=== PATIENT | female | born 1965 | race Caucasian/White ===

== ENCOUNTER → 2017-01-14 | Outpatient (CLI) | payer BC ==
[~2017-01-14] MED LIST: DCS100C PO; ESTR1TAB24 PO; FEXO180T PO; HYDR1TAB75 PO; IBP800T PO; LISI10TA PO; OMEP-10 PO; ONDA4TAB8 PO; PROBIOTIC1 EACH PO
--- OUTSIDE RECORDS SUMMARY | 2017-01-14 11:28 | XMS REPORT | Continuity of Care Document ---
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 04/26/2011 Ot 620.1 CORPUS LUTEUM CYST 04/26/2011 Ot 625.6 FEM STRESS INCONTINENCE 04/26/2011 Ot 626.2 EXCESSIVE MENSTRUATION 04/26/2011 Ot 626.8 MENSTRUAL DISORDER NEC 06/14/2015 MAX ALLEN APRN Ot 786.05 06/14/2015 MAX ALLEN APRN Ot 786.2 06/14/2015 MAX ALLEN APRN Ot V12.61 07/08/2015 MAX ALLEN APRN Ot 786.05 07/08/2015 MAX ALLEN APRN Ot 786.2 07/08/2015 MAX ALLEN APRN Ot V12.61 10/22/2015 Ot 401.9 10/22/2015 Ot V76.12 10/22/2015 Ot 625.6 10/22/2015 Ot 626.8 10/22/2015 Ot V72.63 10/22/2015 Ot V72.81 10/22/2015 Ot V74.8 10/26/2015 Ot 625.6 10/26/2015 Ot 626.8 10/26/2015 Ot V72.63 10/26/2015 Ot V72.81 10/26/2015 Ot V74.8 02/22/2016 Ot 625.6 02/22/2016 Ot 626.8 02/22/2016 Ot V72.63 02/22/2016 Ot V72.81 02/22/2016 Ot V74.8 03/16/2016 COLE DO, RAFI L Ot K42.9 UMBILICAL HERNIA WITHOUT OBSTRUCTION OR 03/16/2016 COLE DO, RAFI L Ot K80.20 CALCULUS OF GALLBLADDER W/O CHOLECYSTITI 03/16/2016 COLE DO, RAFI L Ot N39.0 URINARY TRACT INFECTION, SITE NOT SPECIF 03/16/2016 Ot 625.6 FEM STRESS INCONTINENCE 03/16/2016 Ot 626.8 MENSTRUAL DISORDER NEC 03/16/2016 Ot V72.63 PRE-PROCEDURAL LABORATORY EXAMINATION 03/16/2016 Ot V72.81 [id number] CARDIOVASCULAR 03/16/2016 Ot V74.8 SCREEN-BACTERIAL DIS NEC 03/17/2016 COLE DO, RAFI L Ot K42.9 UMBILICAL HERNIA WITHOUT OBSTRUCTION OR 03/17/2016 COLE DO, RAFI L Ot K80.20 CALCULUS OF GALLBLADDER W/O CHOLECYSTITI 03/17/2016 COLE DO, RAFI L Ot N39.0 URINARY TRACT INFECTION, SITE NOT SPECIF 04/11/2016 COLE DO, RAFI L Ot K42.9 UMBILICAL HERNIA WITHOUT OBSTRUCTION OR 04/11/2016 COLE DO, RAFI L Ot K80.20 CALCULUS OF GALLBLADDER W/O CHOLECYSTITI 04/11/2016 COLE DO, RAFI L Ot N39.0 URINARY TRACT INFECTION, SITE NOT SPECIF 04/12/2016 COLE DO, RAFI L Ot K42.9 UMBILICAL HERNIA WITHOUT OBSTRUCTION OR 04/12/2016 COLE DO, RAFI L Ot K80.20 CALCULUS OF GALLBLADDER W/O CHOLECYSTITI 04/12/2016 COLE DO, RAFI L Ot N39.0 URINARY TRACT INFECTION, SITE NOT SPECIF 04/13/2016 Ot 625.6 FEM STRESS INCONTINENCE 04/13/2016 Ot 626.8 MENSTRUAL DISORDER NEC 04/13/2016 Ot V72.63 PRE-PROCEDURAL LABORATORY EXAMINATION 04/13/2016 Ot V72.81 [id number]-[id number] CARDIOVASCULAR 04/13/2016 Ot V74.8 SCREEN-BACTERIAL DIS NEC 04/14/2016 CHRISSY FONG CAMERA SUPERVISOR Ot R06.02 SHORTNESS OF BREATH 04/28/2016 CHRISSY FONG CAMERA SUPERVISOR Ot R06.02 SHORTNESS OF BREATH 05/26/2016 Ot 625.6 FEM STRESS INCONTINENCE 05/26/2016 Ot 626.8 MENSTRUAL DISORDER NEC 05/26/2016 Ot V72.63 PRE-PROCEDURAL LABORATORY EXAMINATION 05/26/2016 Ot V72.81 [id number] CARDIOVASCULAR 05/26/2016 Ot V74.8 SCREEN-BACTERIAL DIS NEC 05/26/2016 CHRISSY FONG APRN Ot R06.02 SHORTNESS OF BREATH 06/02/2016 Ot 625.6 FEM STRESS INCONTINENCE 06/02/2016 Ot 626.8 MENSTRUAL DISORDER NEC 06/02/2016 Ot V72.63 PRE-PROCEDURAL LABORATORY EXAMINATION 06/02/2016 Ot V72.81 [id number] CARDIOVASCULAR 06/02/2016 Ot V74.8 SCREEN-BACTERIAL DIS NEC 06/02/2016 CHRISSY FONG APRN Ot R06.02 SHORTNESS OF BREATH Procedures Code Description Performed By Performed On 59.79 04/24/2011 65.61 04/24/2011 68.51 04/24/2011 70.50 04/24/2011 Results Encounters ACCT No. Visit Date/Time Discharge Status Pt. Type Provider Facility Loc./Unit Complaint [id number] 03/16/2016 14:23:00 2015 16:41:00 DIS Emergency COLE DO, RAFI L [facility] ER [id number] 06/09/2015 19:39:00 2014 23:59:59 CLS Outpatient MAX ALLEN APRN [facility] RAD [id number] 11/03/2014 14:54:00 2013 23:59:59 CLS Outpatient SENDY MERRILL [facility] OCC [id number] 04/13/2016 15:18:00 ACT Outpatient CHRISSY FONG APRN [facility] RAD [id number] 04/24/2011 05:46:00 Document Registration [id number] 04/19/2011 08:57:00 Document Registration [id number] 10/21/2010 11:55:00 Document Registration [id number] 05/02/2010 06:59:00 Document Registration
--- NOTE | 2017-01-14 12:24 | Diagnostic Imaging Report ---
INDICATION: Cough and congestion. COMPARISON: 04/13/2016 FINDINGS: Two views of the chest are obtained. Heart size is normal. The pulmonary vessels appear unremarkable. There is no pneumothorax, mediastinal widening or pleural fluid demonstrated. The lungs are clear. The osseous structures appear unremarkable. IMPRESSION: Negative chest. Dictated by: Dictated on workstation # [id number]
== END ==
LOC: RAD 11:25
PROVIDERS: ATTEND Nurse Practitioner Family
DX: J20.9 Acute bronchitis, unspecified (principal)
CPT/HCPCS: 71020

== ENCOUNTER → 2017-06-26 | Outpatient (CLI) | payer BC ==
--- NOTE | 2017-06-26 12:08 | Diagnostic Imaging Report ---
PROCEDURE: MRI lumbar spine. TECHNIQUE: Multiplanar, multisequence MRI of the lumbar spine was performed without contrast. INDICATION: Back pain. FINDINGS: There is minimal retrolisthesis of L4 over L5. Otherwise, the alignment of the lumbar spine is satisfactory. There is mild disc height loss at L4/5 and disc desiccation in the lower lumbar discs. There is preserved vertebral body heights. There is Modic type I and 2 changes around the endplates of L4/5. The cauda equina and conus medullaris appear grossly unremarkable. T12/L1: There is no disc herniation. There is mild facet hypertrophy. No spinal canal or foramina stenosis. L1/2: There is no disc herniation. There is no facet hypertrophy. No spinal canal or foraminal stenosis. L2/3: There is no disc herniation and there is no facet hypertrophy. No spinal canal or foraminal stenosis. L3/4: There is no disc herniation. No facet hypertrophy. No central canal, lateral recess or foraminal stenosis. L4/5: There is a diffuse disc bulge and bilateral moderate facet and ligamentous hypertrophy. There is moderate central canal stenosis reducing the AP dimension of the canal to 6 mm and moderate lateral recess stenosis is seen bilaterally, worse on the left with minimal compression of the descending left L5 nerve roots. The foramina demonstrate mild stenosis on the left and no stenosis on the right. L5/S1: There is no significant disc herniation. There is moderate to severe facet hypertrophy seen at L5/S1. There is bilateral lateral recess stenosis of mild to moderate degree more prominent on the left side with no definite nerve compression. The foramina are patent bilaterally. IMPRESSION: There is minimal retrolisthesis of L4 over L5 with disc and facet degenerative changes resulting in central canal and lateral recess stenosis more prominent on the left side and slightly compressing the descending left L5 nerve roots. Dictated by: Dictated on workstation # [id number]
== END ==
LOC: RAD 10:02
PROVIDERS: ATTEND Nurse Practitioner
DX: M48.06 Spinal stenosis, lumbar region (principal); M54.16 Radiculopathy, lumbar region
CPT/HCPCS: 72148

== ENCOUNTER 2017-08-26 15:59 | Emergency (ER) | payer BC ==
[~2017-08-26] VITALS: Ht 167.6 cm; Wt 79.4 kg
--- OUTSIDE RECORDS SUMMARY | 2017-08-26 16:05 | XMS REPORT | Continuity of Care Document ---
Author Author [facility] Organization [facility] Address Unknown Phone Unavailable Allergies Active Description Code Type Severity Reaction Onset Reported/Identified Relationship to Patient Clinical Status Yes No Known Drug Allergies [id number] Drug Allergy Unknown N/ A 04/01/2010 Medications [...] V72.63 PRE-PROCEDURAL LABORATORY EXAMINATION 03/16/2016 Ot V72.81 [id number] CARDIOVASCULAR 03/16/2016 Ot V74.8 SCREEN-BACTERIAL DIS NEC [...] INFECTION, SITE NOT SPECIF 04/12/2016 COLE DO, RFAI L Ot K42.9 UMBILICAL HERNIA WITHOUT OBSTRUCTION OR 04/12/2016 COLE DO, RAFI L Ot K80.20 CALCULUS OF GALLBLADDER W/O CHOLECYSTITI 04/12/2016 COLE DO, RAFI L Ot N39.0 URINARY TRACT INFECTION, SITE NOT SPECIF 04/13/2016 Ot 625.6 FEM STRESS INCONTINENCE 04/13/2016 Ot 626.8 MENSTRUAL DISORDER NEC 04/13/2016 Ot V72.63 PRE-PROCEDURAL LABORATORY EXAMINATION 04/13/2016 Ot V72.81 [id number]-MBL-[id number] CARDIOVASCULAR 04/13/2016 Ot V74.8 SCREEN-BACTERIAL DIS NEC 04/14/2016 CHRISSY FONG DRY END OPERATOR Ot R06.02 SHORTNESS OF BREATH 04/28/2016 CHRISSY FONG APRN Ot R06.02 SHORTNESS OF BREATH 05/26/2016 Ot 625.6 FEM STRESS INCONTINENCE 05/26/2016 Ot 626.8 MENSTRUAL DISORDER NEC 05/26/2016 Ot V72.63 PRE-PROCEDURAL LABORATORY EXAMINATION 05/26/2016 Ot V72.81 [id number] CARDIOVASCULAR 05/26/2016 Ot V74.8 SCREEN-BACTERIAL DIS NEC 05/26/2016 CHRISSY FONG DRY END OPERATOR Ot R06.02 SHORTNESS OF BREATH 06/02/2016 Ot 625.6 FEM STRESS INCONTINENCE 06/02/2016 Ot 626.8 MENSTRUAL DISORDER NEC 06/02/2016 Ot V72.63 PRE-PROCEDURAL LABORATORY EXAMINATION 06/02/2016 Ot V72.81 [id number]-[id number] CARDIOVASCULAR 06/02/2016 Ot V74.8 SCREEN-BACTERIAL DIS NEC 06/02/2016 CHRISSY FONG DRY END OPERATOR Ot R06.02 SHORTNESS OF BREATH 01/14/2017 CHRISSY FONG DRY END OPERATOR Ot R06.02 SHORTNESS OF BREATH 02/01/2017 JAMES TERRY Ot J20.9 ACUTE BRONCHITIS, UNSPECIFIED 06/27/2017 ANICETO FREEDMAN Ot M48.06 SPINAL STENOSIS, LUMBAR REGION 06/27/2017 ANICETO FREEDMAN Ot M54.16 RADICULOPATHY, LUMBAR REGION 08/01/2017 ANICETO FREEDMAN Ot M48.06 SPINAL STENOSIS, LUMBAR REGION 08/01/2017 ANICETO FREEDMAN Ot M54.16 RADICULOPATHY, LUMBAR REGION Procedures Code Description Performed By Performed On 59.79 04/24/2011 65.61 04/24/2011 68.51 04/24/2011 70.50 04/24/2011 Results Encounters ACCT No. Visit Date/Time Discharge Status Pt. Type Provider Facility Loc./Unit Complaint [id number] 06/26/2017 10:02:00 2016 23:59:59 CLS Outpatient ANICETO FREEDMAN [facility] RAD LUMBAR RADICULOPATHY [id number] 01/14/2017 11:25:00 2016 23:59:59 CLS Outpatient JAMES TERRY [facility] RAD ACUTE BRONCHITIS UNSPECIFIED ORGANISM [id number] 04/13/2016 15:18:00 2015 23:59:59 CLS Outpatient CHRISSY FONG APRN [facility] RAD SOB [id number] 03/16/2016 14:23:00 2015 16:41:00 DIS Emergency COLE RAFI ROBERT [facility] ER LEFT FLANK PAIN/UTI SYMPTOMS [id number] 06/09/2015 19:39:00 2014 23:59:59 CLS Outpatient MAX ALLEN APRN [facility] RAD [id number] 11/03/2014 14:54:00 2013 23:59:59 CLS Outpatient SENDY MERRILL [facility] OCC [id number] 04/24/2011 05:46:00 Document Registration [id number] 04/19/2011 08:57:00 Document Registration [id number] 10/21/2010 11:55:00 Document Registration [id number] 05/02/2010 06:59:00 Document Registration
[2017-08-26 16:50] LABS: BILIRUBIN,URINE NEGATIVE (NEGATIVE); KETONES,URINE NEGATIVE (NEGATIVE); LEUKOCYTE ESTERASE ,URINE NEGATIVE (NEGATIVE); NITRITE,URINE NEGATIVE (NEGATIVE); PH,URINE 7 (5-9); PROTEIN,URINE NEGATIVE (NEGATIVE); UROBILINOGEN,URINE NORMAL (NORMAL)
[2017-08-26 17:14] LABS: SQUAMOUS EPITHELIAL CELL,UR TNTC /HPF
[2017-08-26] MEDS ORDERED: NS IV 1000 ML 1,000 ML IV ONE (17:46)
[2017-08-26] MEDS ORDERED: fentaNYL INJECTION 100 MCG/2 ML AMP IVP STA (17:46)
[2017-08-26] MEDS ORDERED: NS 100 ML (IVPB) BAG IV ONE (18:00)
[2017-08-26] MEDS ORDERED: IOHEXOL 350 MG/ML 100 ML (OMNIPAQUE 350) VIAL IV ONE (18:00)
[2017-08-26] MEDS ORDERED: ONDANSETRON 4 MG/2 ML (SDV) Z0FRAN IVP ONE (18:00)
[2017-08-26] MEDS ORDERED: KETOROLAC 30 MG/ML VIAL IVP STA (18:09)
[2017-08-26 18:11] LABS: BASOPHILS % (AUTO) 0 % (0-10); EOSINOPHILS # (AUTO) 0.1 10^3/uL (0.0-0.3); EOSINOPHILS % (AUTO) 2 % (0-10); LYMPHOCYTES # (AUTO) 1.7 X 10^3 (1.0-4.0); LYMPHOCYTES % (AUTO) 38 % (12-44); MEAN CORPUSCULAR HEMOGLOBIN 30 PG (25-34); MEAN CORPUSCULAR HGB CONC 33 G/DL (32-36); MEAN CORPUSCULAR VOLUME 91 FL (80-99); MEAN PLATELET VOLUME 10.3 FL (7.4-10.4); MONOCYTES # (AUTO) 0.4 X 10^3 (0.0-1.0); MONOCYTES % (AUTO) 10 % (0-12); NEUTROPHILS # (AUTO) 2.1 X 10^3 (1.8-7.8); NEUTROPHILS % (AUTO) 49 % (42-75); PLATELET COUNT 252 10^3/uL (130-400); RED BLOOD COUNT 4.24 10^6/uL (4.35-5.85); RED CELL DISTRIBUTION WIDTH 13.1 % (10.0-14.5); WHITE BLOOD COUNT 4.3 10^3/uL (4.3-11.0)
[2017-08-26] MEDS ORDERED: LORazepam INJ 2 MG/ML (ATIVAN) VIAL IVP ONE (18:15)
--- NOTE | 2017-08-26 18:37 | ED Abdominal Pain ---
General Chief Complaint: Abdominal/GI Problems Stated Complaint: STOMACH AND R SIDE PAIN Nursing Triage Note: AMB TO ROOM REPORTS HAS HAD STOMACH ISSUES FOR 2 WEEKS WITH DIARRHEA BECAME BETTER, TUE WAS WEAK WITH BODY ACHES, DIARRHEA ,NAUSEA NO VOMITING. Sepsis Screen: No Definite Risk Source of Information: Patient, Spouse Exam Limitations: No Limitations Allergies and Home Medications Allergies Coded Allergies: No Known Drug Allergies (Unverified , 04/01/10) Home Medications Docusate Sodium 100 Mg Capsule, 100 MG PO BID, (Reported) Estradiol 1 Mg Tablet, 1 MG PO DAILY, (Reported) Fexofenadine Hcl 180 Mg Tablet, 1 TAB PO DAILY, (Reported) Hydrocodone Bit/Acetaminophen 1 Each Tablet, 1-2 EACH PO q 3hrs prn PRN, ( Reported) Ibuprofen 800 Mg Tab, 800 MG PO q 6hrs prn PRN, (Reported) Lactobacillus Rhamnosus Gg 1 Each Capsule, 1 EACH PO DAILY, (Reported) Lisinopril 10 Mg Tablet, 1 EACH PO DAILY, (Reported) Omeprazole 20 Mg Capsule.dr, 20 MG PO DAILY, (Reported) Past Kwypvcb-Asxxkh-Quzise Hx Patient Social History Alcohol Use: Occasionally Uses Recreational Drug Use: No Smoking Status: Never a Smoker Recent Foreign Travel: No Contact w/Someone Who Travel: No Recent Infectious Disease Expo: No Recent Hopitalizations: Yes (SURGERY) Surgeries History of Surgeries: Yes (NEUROMA RT. FOOT) Respiratory History of Respiratory Disorde: No Cardiovascular History of Cardiac Disorders: No Neurological History of Neurological Disord: No Reproductive System Hx Reproductive Disorders: Yes Sexually Transmitted Disease: No Gastrointestinal History of Gastrointestinal Di: Yes (ADMITTED DEC. FOR INTESTINAL INFECTION) Musculoskeletal History of Musculoskeletal Dis: No Endocrine History of Endocrine Disorders: No Psychosocial History of Psychiatric Problem: No Blood Transfusions History of Blood Disorders: No Physical Exam Vital Signs VS - Last 72 Hours, by Label 08/26/17 16:13 Temp 97.1 Pulse 83 Resp 18 B/P (MAP) 143/93 Pulse Ox 98 O2 Delivery Room Air Capillary Refill : Less Than 3 Seconds Progress/Results/Core Measures Results/Orders Lab Results Laboratory Tests Test 08/26/17 16:40 08/26/17 17:55 Range/Units Urine Color YELLOW Urine Clarity SLIGHTLY CLOUDY Urine pH 7 5-9 Urine Specific [place] 1.005 L 1.016-1.022 Urine Protein NEGATIVE NEGATIVE Urine Glucose (UA) NEGATIVE NEGATIVE Urine Ketones NEGATIVE NEGATIVE Urine Nitrite NEGATIVE NEGATIVE Urine Bilirubin NEGATIVE NEGATIVE Urine Urobilinogen NORMAL NORMAL MG/DL Urine Leukocyte Esterase NEGATIVE NEGATIVE Urine RBC (Auto) NEGATIVE NEGATIVE Urine RBC NONE /HPF Urine WBC 2-5 /HPF Urine Squamous Epithelial Cells TNTC H /HPF Urine Crystals NONE /LPF Urine Bacteria LARGE H /HPF Urine Casts NONE /LPF Urine Mucus NEGATIVE /LPF Urine Culture Indicated NO White Blood Count 4.3 4.3-11.0 10^3/uL Red Blood Count 4.24 L 4.35-5.85 10^6/uL Hemoglobin 12.8 11.5-16.0 G/DL Hematocrit 39 35-52 % Mean Corpuscular Volume 91 80-99 FL Mean Corpuscular Hemoglobin 30 25-34 PG Mean Corpuscular Hemoglobin Concent 33 32-36 G/DL Red Cell Distribution Width 13.1 10.0-14.5 % Platelet Count 252 130-400 10^3/uL Mean Platelet Volume 10.3 7.4-10.4 FL Neutrophils (%) (Auto) 49 42-75 % Lymphocytes (%) (Auto) 38 12-44 % Monocytes (%) (Auto) 10 0-12 % Eosinophils (%) (Auto) 2 0-10 % Basophils (%) (Auto) 0 0-10 % Neutrophils # (Auto) 2.1 1.8-7.8 X 10^3 Lymphocytes # (Auto) 1.7 1.0-4.0 X 10^3 Monocytes # (Auto) 0.4 0.0-1.0 X 10^3 Eosinophils # (Auto) 0.1 0.0-0.3 10^3/uL Basophils # (Auto) 0.0 0.0-0.1 10^3/uL Sodium Level 143 135-145 MMOL/L Potassium Level 3.1 L 3.6-5.0 MMOL/L Chloride Level 105 98-107 MMOL/L Carbon Dioxide Level 27 21-32 MMOL/L Anion Gap 11 5-14 MMOL/L Blood Urea Nitrogen 7 7-18 MG/DL Creatinine 0.66 0.60-1.30 MG/DL Estimat Glomerular Filtration Rate > 60 BUN/Creatinine Ratio 11 Glucose Level 92 70-105 MG/DL Calcium Level 8.9 8.5-10.1 MG/DL Total Bilirubin 0.3 0.1-1.0 MG/DL Aspartate Amino Transf (AST/SGOT) 25 5-34 U/L Alanine Aminotransferase (ALT/SGPT) 49 0-55 U/L Alkaline Phosphatase 62 40-136 U/L C-Reactive Protein High Sensitivity 0.82 H 0.00-0.50 MG/DL Total Protein 6.0 L 6.4-8.2 GM/DL Albumin 3.8 3.2-4.5 GM/DL Lipase 25 8-78 U/L My Orders Orders - TRIP GRAY Ua Culture If Indicated (08/26/17 16:33) Cbc With Automated Diff (08/26/17 17:46) Comprehensive Metabolic Panel (08/26/17 17:46) Hs C Reactive Protein (08/26/17 17:46) Lipase (08/26/17 17:46) Saline Lock/Iv-Start (08/26/17 17:46) Fentanyl Injection (Sublimaze Injection (08/26/17 17:46) Ondansetron Injection (Zofran Injectio (08/26/17 18:00) Ns Iv 1000 Ml (Sodium Chloride 0.9%) (08/26/17 17:46) Iohexol Injection (Omnipaque 350 Mg/Ml 1 (08/26/17 18:00) Ns (Ivpb) (Sodium Chloride 0.9% Ivpb Bag (08/26/17 18:00) Pharmacy Communication (Pharmacy Communi (08/26/17 17:50) Ct Abd/Pelvis Wo(Kidney Stone) (08/26/17 18:09) Ketorolac Injection (Toradol Injection) (08/26/17 18:09) Lorazepam Injection (Ativan Injection) (08/26/17 18:15) Medications Given in ED Current Medications Medications Dose Ordered Sig/Jasmine Route Start Time Stop Time Status Last Admin Dose Admin Lorazepam 1 mg ONCE ONCE IVP 08/26/17 18:15 08/26/17 18:16 DC 08/26/17 18:16 1 MG Ondansetron HCl 4 mg ONCE ONCE IVP 08/26/17 18:00 08/26/17 18:01 DC 08/26/17 17:52 4 MG Sodium Chloride 1,000 ml @ 0 mls/hr Q0M ONCE IV 08/26/17 17:46 08/26/17 17:48 DC 10/8/17 17:53 1,000 MLS/HR Vital Signs/I&O Vital Sign - Last 12Hours 08/26/17 16:13 Temp 97.1 Pulse 83 Resp 18 B/P (MAP) 143/93 Pulse Ox 98 O2 Delivery Room Air Intake and Output 08/27/17 00:00 Intake Total 1000 ml Balance 1000 ml Blood Pressure Mean: 110 Departure Impression Impression: Primary Impression: Cholelithiasis Additional Impressions: Abdominal pain Nausea and vomiting Disposition: HOME, SELF-CARE Condition: Improved Departure-Patient Inst. Decision time for Depature: 20:56 Referrals: KAYLIN DAVIS MD (PCP/Family) Primary Care Physician Patient Instructions: Acute Abdomen (Belly Pain), Adult (DC), Gallstones (DC) Add. Discharge Instructions: All discharge instructions reviewed with patient and/or family. Voiced understanding. Medications as instructed. Ibuprofen 800 mg by mouth every 8 hours as needed for pain. Drink plenty of fluids. Strict low-fat diet. Follow-up with your family practitioner for recheck as an outpatient. Call for appointment time. Follow-up with Dr. Gorman as an outpatient for recheck, call Sunday for appointment time. Return to the emergency department immediately for worsened pain, fever, vomiting, inability to urinate, decreased urination, abdominal swelling, blood in the urine, blood in the stool, or any other concerns. Scripts Hydrocodone/Acetaminophen (Hydrocodon -Acetaminophen 5-325) 1 Each Tablet 1 EACH PO Q4H Y for PAIN, #20 TAB 0 Refills Prov: TRIP GRAY 08/26/17 Ondansetron (Ondansetron Odt) 8 Mg Tab.rapdis 8 MG PO Q6H Y for NAUSEA/VOMITING-1ST LINE, #10 TAB 0 Refills Prov: TRIP GRAY 08/26/17 Work/School Note: Local Medical Staff Listing, Work Release Form Date Seen in the Emergency Department: Aug 26, 2017 Return to Work: Aug 29, 2017 TRIP GRAY Aug 26, 2017 18:37
[2017-08-26 18:51] LABS: ALANINE AMINOTRANSFERASE 49 U/L (0-55); ALBUMIN 3.8 GM/DL (3.2-4.5); ANION GAP 11 MMOL/L (5-14); ASPARTATE AMINO TRANSFERASE 25 U/L (5-34); BILIRUBIN,TOTAL 0.3 MG/DL (0.1-1.0); BLOOD UREA NITROGEN 7 MG/DL (7-18); BUN/CREATININE RATIO 11; CALCIUM 8.9 MG/DL (8.5-10.1); CARBON DIOXIDE 27 MMOL/L (21-32); CHLORIDE 105 MMOL/L (98-107); CREATININE SERUM 0.66 MG/DL (0.60-1.30); GFR ESTIMATED > 60; GLUCOSE 92 MG/DL (70-105); LIPASE 25 U/L (8-78); POTASSIUM 3.1 MMOL/L (3.6-5.0); SODIUM 143 MMOL/L (135-145); hs C REACTIVE PROTEIN 0.82 MG/DL (0.00-0.50)
--- NOTE | 2017-08-26 18:59 | Diagnostic Imaging Report ---
PROCEDURE: CT urinary tract, rule out kidney stone. TECHNIQUE: Multiple contiguous axial images were obtained through the abdomen and pelvis without the use of intravenous contrast. INDICATION: Abdominal pain and diarrhea for five days, worse today, previous surgical history of bladder sling and hysterectomy. COMPARISON STUDY: CT scan of the abdomen and pelvis dated 03/16/2016. FINDINGS: The lung bases are clear. Cholelithiasis is again identified with a 2 cm stone near the neck of the gallbladder. No ductal dilatation or inflammation is seen. The liver, spleen, pancreas, adrenal glands, and kidneys appear normal. No renal calculi or hydronephrosis is present. Urinary bladder is normal. Uterus is absent. No ascites, free air, or abnormal adenopathy is present. Couple of diverticula are present without inflammation. The bowel loops are otherwise normal. No obstruction or ileus is present. The vascular structures appear normal. There is no abnormal adenopathy. There is no ascites or free air. Some facet arthropathy is seen in the lower lumbar spine. IMPRESSION: 1. Cholelithiasis is again identified. 2. There are no acute findings. Dictated by: Dictated on workstation # [id number]
[2017-08-26] MEDS ORDERED: RX-ONDANSETRON 4 MG ODT (ZOFRAN) PPK #4 PO STA (20:55)
[2017-08-26] MEDS ORDERED: ONDA8TAB13 PO (20:58)
[2017-08-26] MEDS ORDERED: HYDR-3812 PO (20:58)
[2017-08-26] MEDS ORDERED: RX-HYDROCODONE/APAP 5/325 MG #4 TAB PK PO PRN (21:00)
[2017-08-26 21:04] VITALS: BP 126/94
[2017-08-28] MEDS ORDERED: HYDR-3816 PO (14:13)
== END 2017-08-26 21:04 | disposition home or self-care (01) ==
LOC: EDUNIT# 15:59 → ER 16:01
DX: K80.20 Calculus of gallbladder without cholecystitis without obstruction (principal); Z86.19 Personal history of other infectious and parasitic diseases
CPT/HCPCS: 36415; 74176; 80053; 81000; 83690; 85025; 86141; 99283

== ENCOUNTER 2017-08-28 09:54 | Day surgery (SDC) | payer BC ==
[~2017-08-28] VITALS: Ht 167.6 cm; Wt 79.4 kg
[~2017-08-28 09:54] MED LIST changes: +HYDR-3812 PO; +ONDA8TAB13 PO
[2017-08-28 09:58] VITALS: BP 134/75
[2017-08-28] MEDS ORDERED: FAMOTIDINE 20MG/2ML IV (PEPCID) IV ONE (10:30)
[2017-08-28] MEDS ORDERED: ONDANSETRON 4 MG/2 ML (SDV) Z0FRAN IV ONE (10:30)
[2017-08-28] MEDS ORDERED: SCOPOLAMINE 1.5 MG (TRANSDERM-SCOP) PATCH TOP ONE (10:30)
[2017-08-28] MEDS ORDERED: CATHETER FLUSH 10 ML SYR IV PRN (10:45)
[2017-08-28] MEDS ORDERED: ceFAZolin 1 GM/NS 50 ML IVPB IV ONE ×2 (10:45)
[2017-08-28] MEDS: LACTATED RINGERS 1,000 ML IV PRN ×2 (11:00→13:34)
[2017-08-28] MEDS ORDERED: BUP/EPI 0.5% 1:200,000 (MARCAINE) 10ML VIAL IJ ONE (11:07)
[2017-08-28] MEDS ORDERED: ESTR1TAB24 PO (11:20)
[2017-08-28] MEDS ORDERED: LEVO75TA6 PO (11:20)
[2017-08-28] MEDS ORDERED: LISI-552 PO (11:20)
[2017-08-28] MEDS ORDERED: OMEP20TA7 PO (11:20)
[2017-08-28] MEDS ORDERED: MIDAZOLAM 2 MG/2 ML (VERSED) VIAL ONE (11:28)
[2017-08-28] MEDS ORDERED: fentaNYL INJECTION 250 MCG/5 ML AMP ONE (11:28)
[2017-08-28] MEDS ORDERED: proPOfol 200 MG/20 ML (DIPRIVAN) VIAL IV ONE (11:28)
[2017-08-28] MEDS ORDERED: ROCURONIUM 50 MG/5 ML (ZEMURON) VIAL IV ONE (11:28)
[2017-08-28] MEDS ORDERED: IBUP-1780 PO (11:45)
[2017-08-28] MEDS ORDERED: DICL/MIS50 PO (11:45)
--- NOTE | 2017-08-28 11:58 | Progress Note-Pre Operative ---
Pre-Operative Progress Note H&P Reviewed The H&P was reviewed, patient examined and no changes noted. Date Seen by Provider: Aug 28, 2017 Time Seen by Provider: 11:50 Date H&P Reviewed: Aug 28, 2017 Time H&P Reviewed: 11:55 Pre-Operative Diagnosis: Chronic calculous cholecystitis, symptomatic incisional hernia RAFFI CENTENO APRN Aug 28, 2017 11:58 am
[2017-08-28] MEDS ORDERED: ACETAMINOPHEN 325 MG TABLET/CAPLET (TYLENOL) PO PRN (12:00)
[2017-08-28] MEDS ORDERED: morphine INJ 10 MG/ML 1ML (SYR OR VIAL) IVP PRN (12:00)
[2017-08-28] MEDS ORDERED: HYDROcodone/APAP 5 MG/325 MG (LORTAB) TAB PO ONE (12:00)
[2017-08-28] MEDS ORDERED: ONDANSETRON 4 MG/2 ML (SDV) Z0FRAN IVP PRN ×2 (12:00→14:30)
[2017-08-28] MEDS ORDERED: DEXAMETHASONE 10 MG/ML (DECADRON) 1 ML VIAL ONE (12:50)
[2017-08-28] MEDS ORDERED: SEVOFLURANE (ULTANE) 15 ML INHAL SOLN ONE ×2 (12:50→13:57)
[2017-08-28] MEDS ORDERED: GLYCOPYRROLATE 0.2 MG/ML (ROBINUL) 2 ML VIAL ONE (14:02)
[2017-08-28] MEDS ORDERED: NEOSTIGMINE (BLOXIVERZ ) 1 MG/1ML 10 ML VIAL ONE (14:02)
--- NOTE | 2017-08-28 14:10 | Progress Note-Post Operative ---
Post-Operative Progess Note Surgeon (s)/Sandwich Counter Attendant (s) Surgeon GILMA SANCHEZ MD Sandwich Counter Attendant: suly wheeler MANAGER HEART FAILURE Pre-Operative Diagnosis Chronic calculous cholecystitis, symptomatic incisional hernia Post-Operative Diagnosis same Procedure & Operative Findings Date of Procedure 08/28/17 Procedure Performed/Findings laparoscopic cholecystectomy, laparoscopic incisional hernia repair with mesh. Anesthesia Type GET Estimated Blood Loss Estimated blood loss (mL): minimal Specimens/Packing Specimens Removed gallbladder GILMA SANCHEZ MD Aug 28, 2017 2:10 pm
[2017-08-28] MEDS ORDERED: HYDR-3816 PO (14:13)
--- NOTE | 2017-08-28 14:15 | Discharge Inst-Surgical ---
D/C Lap Instructions-LAURA New, Converted, or Re-Newed RX: RX on Chart Follow Up Appt in 2 weeks Activity as tolerated No driving for 24 hours No [address] while on pain medications Incentive Spirometry use every 2 hours while awake Regular Diet Symptoms to Report: Fever over 101 degree F, Nausea/Vomiting Infection Signs and Symptoms to report: Increased redness, Foul odor of wound, Increased drainage Bathing instructions: May shower Operative Area Clean/Dry; Keep incision clean/dry If any problems/questions: Contact your physician or go to Emergency Room GILMA SANCHEZ MD Aug 28, 2017 2:15 pm
[2017-08-28] MEDS ORDERED: morphine INJ 10 MG/ML 1ML (SYR OR VIAL) ONE (14:17)
[2017-08-28] MEDS: morphine INJ 10 MG/ML 1ML (SYR OR VIAL) IVP PRN ×2 (14:29→14:34)
[2017-08-28] MEDS ORDERED: KETOROLAC 30 MG/ML VIAL IVP ONE (14:30)
[2017-08-28] MEDS ORDERED: HYDROmorphone (DILAUDID) 2 MG/ML VIAL ONE (14:37)
[2017-08-28] MEDS: HYDROmorphone (DILAUDID) 2 MG/ML VIAL IVP PRN ×2 (14:45→14:55)
[2017-08-28 15:25] VITALS: BP 129/70
[2017-08-28] MEDS ORDERED: HYDROcodone/APAP 5 MG/325 MG (LORTAB) TAB ONE (15:46)
[2017-08-28 15:55] VITALS: BP 121/66
[2017-08-28 16:30] VITALS: BP 116/65
[2017-08-28 17:15] VITALS: BP 116/65
--- NOTE | 2017-08-29 05:09 | OPERATIVE REPORT ---
DATE OF SERVICE: 08/28/2017 ATTENDING PRIMARY CARE PHYSICIAN: Dr. Armas. PREOPERATIVE DIAGNOSES: Symptomatic chronic calculous cholecystitis and symptomatic ventral abdominal incisional hernia, which was reducible. POSTOPERATIVE DIAGNOSES: Symptomatic chronic calculous cholecystitis and symptomatic ventral abdominal incisional hernia, which was reducible. PROCEDURE PERFORMED: Laparoscopic cholecystectomy and laparoscopic incisional hernia repair with mesh. SURGEON: Dr. Sanchez. ANESTHESIA: Conscious sedation. ESTIMATED BLOOD LOSS: Minimal. FINDINGS: A large solitary stone and incisional periumbilical ventral abdominal incisional hernia with nothing within the hernia sac. DISPOSITION: The patient tolerated the procedure well. INDICATIONS FOR PROCEDURE: The patient is a 52-year-old female who presented to the Emergency Department with a 1-week history of right upper abdominal quadrant pain. She reported that this had started a week ago and was associated with diarrhea as well as mild fevers. She had reported that the pain did radiate towards the back and was sharp in nature as well. She also had reported nausea; however, no vomiting. A CT scan was performed, which did show gallstones. Upon examination, she was also found to have an incisional hernia in the periumbilical region. This was reducible; however, tender to palpation. She wanted this repaired as well. DESCRIPTION OF PROCEDURE: The patient was brought to the operating room, laid supine on the table. After adequate IV pain and sedating medications and general endotracheal intubation, the abdomen was prepped and draped in a standard surgical fashion. A 0.5% Marcaine with epinephrine was then used to anesthetize the overlying skin in the left upper abdominal quadrant and a small transverse skin incision made using a 15 blade. A 0 silk suture was applied to the medial aspect of the incision for retraction and a Veress needle inserted with a low opening pressure of 0 mmHg. The abdomen was insufflated to 15 mmHg pressure. The Veress needle removed and a 5 mm Xcel trocar placed followed by a 5 mm 45-degree angle laparoscope visualizing the peritoneal cavity. A 4-quadrant abdominal exploration was performed. A ventral incisional abdominal hernia was identified with nothing within the hernia sac. The defect was approximately 1.5 cm in size. There was [id number] gallbladder wall inflammation as well as dilatation. Under direct visualization, we then proceeded to place a supraumbilical 10 mm port through the fascial defect. In a similar manner, a right upper abdominal quadrant 5 mm port was placed. The patient was then placed in reverse Trendelenburg position as well as plane right side up, left side down. The hepatoduodenal ligament was then opened using electrocautery on the hook instrument and blunt dissection. The entire critical view of safety was identified including the triangle of Calot as well as the cystic duct and artery going into the gallbladder as well as the liver behind the proximal gallbladder. A timeout was then taken and the cystic duct and artery were then clipped proximally and distally and cut with EndoShears. The gallbladder was then dissected off of the liver bed using electrocautery on the hook instrument with visualization of good hemostasis as well as no leaking ducts of Luschka. The gallbladder was removed through the 10 mm port site using an EndoCatch bag. At the back table, a large solitary stone was identified. We then turned our attention to repair of the ventral abdominal incisional hernia. Through the opening 10 mm port site opening, a 6.4 x 6.4 coated polypropylene mesh was placed. This covered the entire defect through the laparoscope. We then proceeded to place absorbable SorbaFix tacks in a double crown fashion with visualization of good hemostasis. The abdomen was desufflated and the remaining ports removed. All skin incisions were closed using 4-0 Monocryl running subcuticular sutures. Wounds were then cleaned and covered with Dermabond. The patient tolerated the procedure well. We will start IV and oral pain medication as well as a clear liquid diet. Once she is tolerating clears and has good pain control with oral pain medications and ambulating well, we will discharge her home. Job ID: [id number] DocumentID: [id number] Dictated Date: 08/28/2017 14:23:49 Brand Sales Manager Date: 08/29/2017 05:08:15 Dictated By: GILMA SANCHEZ MD
== END 2017-08-28 17:15 | disposition home or self-care (01) ==
LOC: SDC 09:54
PROVIDERS: ATTEND Surgery
DX: K80.12 Calculus of gallbladder with acute and chronic cholecystitis without obstruction (principal); K43.2 Incisional hernia without obstruction or gangrene; I10 Essential (primary) hypertension; K21.9 Gastro-esophageal reflux disease without esophagitis; E03.9 Hypothyroidism, unspecified; Z79.899 Other long term (current) drug therapy; Z87.891 Personal history of nicotine dependence
CPT/HCPCS: 87081; 94664

== ENCOUNTER → 2018-09-27 | Outpatient (CLI) | payer BC ==
[~2018-09-27] MED LIST changes: +ACHD5005 PO; +DICL/MIS50 PO; +HYDR-34 PO; -HYDR-3812 PO; +IBUP-1780 PO; +LEVO75TA6 PO; +LISI-552 PO; +OMEP20TA7 PO
--- NOTE | 2018-09-27 17:10 | Diagnostic Imaging Report ---
PROCEDURE: MRI left joint lower extremity without contrast. TECHNIQUE: Multiplanar, multisequence non contrast-enhanced MRI of the left lower extremity was accomplished. INDICATION: Left knee injury with popping sensation. Posterior, medial, and lateral left knee pain with swelling. History of arthroscopy five years ago. COMPARISON: None. FINDINGS: No acute fracture is seen in the left knee. Alignment appears normal. There is a moderate left knee joint effusion. Small subcortical cyst-like changes are seen at the lateral femur. There is full-thickness cartilage loss at the median ridge of the patella with full-thickness cartilage defect at the lateral trochlea. The articular cartilage in the medial compartment demonstrates thinning, surface irregularity, and heterogeneity, with 5 mm full-thickness defect at the medial femoral condyle. The articular cartilage in the lateral compartment demonstrates mild thinning and heterogeneity. There is a complete tear of the medial meniscus near the posterior root, with complex extension and increased signal extending into the posterior horn and body. The lateral meniscus appears intact. The anterior and posterior cruciate ligaments are intact. The medial collateral ligament and the lateral collateral ligamentous complex appear intact. The extensor mechanism is intact. The medial and lateral retinacula are intact. No soft tissue fluid collections are seen. IMPRESSION: 1. Complete tear of the medial meniscus in the left knee near the posterior root. 2. Tricompartmental cartilage loss in the left knee, most pronounced in the patellofemoral compartment. 3. Moderate left knee joint effusion. Dictated by: Dictated on workstation # [id number]
== END ==
LOC: RAD 15:23
PROVIDERS: ATTEND Nurse Practitioner
DX: S83.242A Other tear of medial meniscus, current injury, left knee, initial encounter (principal)
CPT/HCPCS: 73721

== ENCOUNTER → 2020-05-03 | Outpatient (CLI) | payer BC | LOC: CARD 14:43 | PROVIDERS: ATTEND Internal Medicine Cardiovascular Disease | DX: I10 Essential (primary) hypertension (principal); F41.9 Anxiety disorder, unspecified | CPT/HCPCS: 93306 ==